=== PATIENT | female | born 1990 | race Caucasian/White ===

== ENCOUNTER 2020-07-01 18:12 | Emergency (ER) | payer OTHER ==
[~2020-07-01 18:12] MED LIST: K-DUR TAB 20 M20 MEQ PO; PHENERGAN 25 MG25 M1 PO
[2020-07-01 19:51] LABS: BUN/CREATININE RATIO 11 (0-10)
[2020-07-01 19:54] LABS: HEMOGLOBIN 12.2 gm/dl (12.3-15.3); RED BLOOD COUNT 4.08 M/UL (4.00-5.10); WHITE BLOOD COUNT 10.8 K/UL (4.5-11.0)
[2020-07-01] MEDS ORDERED: [UNRECOGNIZED DRUG - REMARK] (20:44)
== END 2020-07-01 21:08 | disposition home or self-care (01) ==
LOC: ER1 18:12
PROVIDERS: Family Medicine
DX: R51.9 Headache, unspecified (principal); M79.10 Myalgia, unspecified site; R11.2 Nausea with vomiting, unspecified; Z88.0 Allergy status to penicillin; Z20.822 Contact with and (suspected) exposure to COVID-19
CPT/HCPCS: 71045; 80053; 82550; 82553; 83615; 83874; 84484; 85025; 85652; 86140; 93005; 99284; U0002

== ENCOUNTER 2020-10-09 12:32 | Emergency (ER) | payer OTHER ==
[~2020-10-09 12:32] MED LIST changes: +[UNRECOGNIZED DRUG - REMARK]
[2020-10-09 15:38] LABS: HEMOGLOBIN 12.6 gm/dl (12.3-15.3); RED BLOOD COUNT 4.24 M/UL (4.00-5.10); WHITE BLOOD COUNT 12.3 K/UL (4.5-11.0)
[2020-10-09 16:21] LABS: BUN/CREATININE RATIO 10 (0-10)
== END 2020-10-09 16:35 | disposition short-term general hospital (02) ==
LOC: ER1 12:32
PROVIDERS: Physician Assistant
DX: F32.9 Major depressive disorder, single episode, unspecified (principal); Z20.822 Contact with and (suspected) exposure to COVID-19; Z79.899 Other long term (current) drug therapy
CPT/HCPCS: 80053; 80307; 81001; 84703; 85025; 93005; 99285; G0480; U0002

== ENCOUNTER 2022-03-04 15:07 | Emergency (ER) | payer OTHER ==
[2022-03-04 15:43] LABS: HEMOGLOBIN 13.1 gm/dl (12.3-15.3); RED BLOOD COUNT 4.14 M/UL (4.00-5.10); WHITE BLOOD COUNT 9.7 K/UL (4.5-11.0)
[2022-03-04 16:09] LABS: BUN/CREATININE RATIO 9 (0-10)
== END 2022-03-04 19:41 | disposition home or self-care (01) ==
LOC: ER1 15:07
PROVIDERS: Emergency Medicine
DX: F41.9 Anxiety disorder, unspecified (principal); R06.00 Dyspnea, unspecified; E87.6 Hypokalemia; F17.290 Nicotine dependence, other tobacco product, uncomplicated; Z20.822 Contact with and (suspected) exposure to COVID-19
CPT/HCPCS: 71045; 80053; 81001; 82550; 82553; 83605; 84484; 84703; 85025; 85379; 87086; 93005; 99285; U0002

== ENCOUNTER → 2022-03-05 | Outpatient (CLI) | payer OTHER | LOC: KOH-I 09:54 | DX: M54.41 Lumbago with sciatica, right side (principal); R93.89 Abnormal findings on diagnostic imaging of other specified body structures | CPT/HCPCS: 71046; 72100 ==